=== PATIENT | male | born 1940 | race Caucasian/White ===

== ENCOUNTER 2017-04-14 00:14 | Emergency (ER) | payer OTHER ==
[~2017-04-14] VITALS: Ht 180.3 cm; Wt 127.3 kg
[2017-04-14] MEDS ORDERED: OFLO35OS OP (00:41)
[2017-04-14] MEDS ORDERED: DOXY25SU3 PO (00:41)
[2017-04-14] MEDS ORDERED: ALEN70TA48 PO (00:41)
[2017-04-14] MEDS ORDERED: WARF1 PO (00:41)
[2017-04-14] MEDS ORDERED: SIMV-261 PO (00:41)
[2017-04-14] MEDS ORDERED: ONDA4 PO (00:41)
[2017-04-14] MEDS ORDERED: KETO.5OS OP (00:41)
[2017-04-14] MEDS ORDERED: GUAI120L62 PO (00:41)
[2017-04-14] MEDS ORDERED: LISI-661 PO (00:41)
[2017-04-14] MEDS ORDERED: LEVAHFA IH (00:41)
[2017-04-14] MEDS ORDERED: BENZ-51 PO (00:41)
[2017-04-14] MEDS ORDERED: ALBUTEROL SULFATE 5 MG/ML 20 ML NEB SOLN [BULK] NEB ONE (00:45)
[2017-04-14] MEDS ORDERED: IPRATROPIUM BROMIDE 0.5 MG/2.5 ML NEB SOLUTION NEB ONE (00:45)
[2017-04-14] MEDS ORDERED: 0.9% SODIUM CHLORIDE 5 ML NEB SOLUTION NEB ONE (00:54)
[2017-04-14 01:16] LABS: HEMATOCRIT 28.1 % (41-53); HEMOGLOBIN 9.1 g/dL (13.5-17.5); MEAN CORPUSCULAR HEMOGLOBIN 29.2 pg (26.0-34.0); MEAN CORPUSCULAR HGB CONC 32.4 G/dL (31.0-37.0); MEAN CORPUSCULAR VOLUME 90 fL (80-100); PLATELET COUNT (AUTO) 393 K/uL (150-450); RED BLOOD CELL COUNT(AUTO) 3.11 MIL/uL (4.50-5.90); RED CELL DISTRIBUTION WIDTH 16.3 % (11.5-14.5)
[2017-04-14 01:24] LABS: ANION GAP 7 mmol/L (8-16); CALCIUM, TOTAL 8.7 mg/dL (8.8-10.5); CARBON DIOXIDE 25 mmol/L (22-29); CHLORIDE 103 mmol/L (98-107); CREATININE 1.34 mg/dL (0.60-1.30); GLOMERULAR FILTR. RATE CALC 52 mL/min (>60); GLUCOSE,RANDOM 135 mg/dL (70-110); POTASSIUM 4.5 mmol/L (3.5-5.1); SODIUM SERUM 135 mmol/L (136-145); UREA NITROGEN, BLOOD 11 mg/dL (7-18)
[2017-04-14 01:30] LABS: ALANINE AMINOTRANSFERASE 23 U/L (12-78); ALKALINE PHOSPHATASE 109 U/L (46-116); ASPARTATE AMINOTRANSFERASE 21 U/L (15-37); BILIRUBIN,TOTAL 0.3 mg/dL (0.1-1.0); CREATINE KINASE, TOTAL 36 U/L (39-308); TOTAL PROTEIN, SERUM 6.7 g/dL (6.4-8.2)
[2017-04-14 01:35] LABS: INR 1.4 (0.9-1.1); PROTHROMBIN TIME 14.7 SEC (9.4-11.6)
[2017-04-14 01:40] LABS: B-TYPE NATRIURETIC PEPTIDE 1990 pg/mL (0-100)
[2017-04-14] MEDS ORDERED: FUROSEMIDE 40 MG/4 ML VIAL IVP ONE (03:15)
[2017-04-14 03:31] LABS: LYMPHOCYTES % (MANUAL) 8 % (22-44); MYELOCYTES % 2 % (0-0)
[2017-04-14 03:37] LABS: BAND NEUTROPHILS % (MANUAL) 1 % (1-5); SEGMENTED NEUTROPHILS % 89 % (40-70)
[2017-04-14 06:02] VITALS: BP 117/46
[2017-04-14] MEDS ORDERED: OXYGEN THERAPY IH SCH (08:00)
== END 2017-04-14 06:04 | disposition short-term general hospital (02) ==
LOC: EDBD 00:20 → EMS 00:20
DX: I11.0 Hypertensive heart disease with heart failure (principal); I50.9 Heart failure, unspecified; J90 Pleural effusion, not elsewhere classified; R06.00 Dyspnea, unspecified; D64.9 Anemia, unspecified; I48.91 Unspecified atrial fibrillation; Z88.8 Allergy status to other drugs, medicaments and biological substances
CPT/HCPCS: 36415; 71045; 80053; 82550; 83605; 83880; 84484; 85025; 85610; 85730; 87040; 93005; 94644; 96374; 99285; J1940; J7611